=== PATIENT | male | born 1990 | race Caucasian/White ===

== ENCOUNTER 2016-09-28 17:50 | Emergency (ER) | payer OTHER, BC ==
[2016-09-28 18:08] VITALS: BP 126/87
[2016-09-28] MEDS ORDERED: predniSONE TAB* 20 MG PO ONE (18:26)
--- NOTE | 2016-09-28 18:29 | ED ---
Lower Extremity - HPI Summary HPI Summary: 26M presents with left ankle pain today. He states that he has history of arthritis with pain in his ankles. He does not taken anything for his arthritis. He denies any numbness or tingling. He denies any injury. He states he was sitting at urgent care and felt an extreme pain in his ankle. He was working outside today. He took ibuprofen and tyenlol prior to coming. He states that he normally clicks his ankle a couple times and it is better but he was unable to do so today. He denies his ankle giving out. He had a previous reconstructive surgery of the ankle done many years ago. He states that he has no medical conditions. - History of Current Complaint Chief Complaint: EDExtremityLower Stated Complaint: LEFT ANKLE PAIN Time Seen by Provider: 09/28/16 18:12 Pain Intensity: 8 - Allergies/Home Medications Allergies/Adverse Reactions: Allergies Allergy/AdvReac Type Severity Reaction Status Date / Time Acetaminophen [From Percocet] Allergy Intermediate Rash Verified 09/28/16 18:15 Oxycodone [From Percocet] Allergy Intermediate Rash Verified 09/28/16 18:15 PMH/Surg Hx/FS Hx/Imm Hx Endocrine/Hematology History: Reports: Hx Diabetes - TYPE 1 Cardiovascular History: Denies: Hx Hypertension Respiratory History: Reports: Other Respiratory Problems/Disorders - SEASONAL ALLERGIES - Surgical History Surgery Procedure, Year, and Place: R shoulder surg, L foot surg Infectious Disease History: No Infectious Disease History: Denies: Traveled Outside the [place] in Last 30 Days - Family History Known Family History: Negative: Hypertension - Social History Alcohol Use: Occasionally Substance Use Type: Reports: None Smoking Status (MU): Former Smoker Review of Systems Negative: Fever Negative: Chest Pain Negative: Shortness Of Breath Positive: Myalgia - left ankle pain All Other Systems Reviewed And Are Negative: Yes Physical Exam Triage Information Reviewed: Yes Vital Signs On Initial Exam: Initial Vitals Temp Pulse Resp BP Pulse Ox 98.3 F 101 16 126/87 98 09/28/16 18:04 09/28/16 18:04 09/28/16 18:04 09/28/16 18:04 09/28/16 18:04 Vital Signs Reviewed: Yes Appearance: Positive: Well-Appearing Skin: Positive: Warm, Dry Head/Face: Positive: Normal Head/Face Inspection Eyes: Positive: Normal, Conjunctiva Clear Respiratory/Lung Sounds: Positive: Clear to Auscultation, Breath Sounds Present Cardiovascular: Positive: Normal, RRR Musculoskeletal: Positive: Strength/ROM Intact - left ankle with pain, Other - good pulses, capillary refill<2 secs, tender across entire ankle. Negative: Edema Left Diagnostics - Vital Signs Vital Signs Temp Pulse Resp BP Pulse Ox 09/28/16 18:12 98.3 F 101 16 126/87 98 09/28/16 18:04 98.3 F 101 16 126/87 98 - Laboratory Lab Statement: Any lab studies that have been ordered have been reviewed, and results considered in the medical decision making process. Lower Extremity Course/Dx - Course Course Of Treatment: 26M presents with left ankle pain today. He states that he has history of arthritis with pain in his ankles. He does not taken anything for his arthritis. He denies any numbness or tingling. He denies any injury. He states he was sitting at urgent care and felt an extreme pain in his ankle. He was working outside today. He took ibuprofen and tyenlol prior to coming. He states that he normally clicks his ankle a couple times and it is better but he was unable to do so today. He denies his ankle giving out. He had a previous reconstructive surgery of the ankle done many years ago. full ROM with pain of ankle. neurovascular intact. offered xray but patient declined. will add steriod as potential arthritis flare up? patient understands and agrees with plan - Diagnoses Differential Diagnosis/HQI/PQRI: Positive: Fracture (Closed), Sprain, Strain Provider Diagnoses: Left ankle pain Discharge - Discharge Plan Condition: Good Disposition: HOME Prescriptions: predniSONE TAB* [Deltasone TAB*] 20 mg PO DAILY #3 tab Patient Education Materials: Arthralgia (ED) Referrals: Jr Murillo MD [Primary Care Provider] - Additional Instructions: Take Tylenol or ibuprofen every 6 hours as needed for pain Take steroid once a day starting tomorrow for 3 more days Apply ice, rest, elevate Follow up with primary care physician within 5 days Return to ED if develop any new or worsening symptoms
== END 2016-09-28 18:39 | disposition home or self-care (01) ==
LOC: ED 17:50
DX: M25.572 Pain in left ankle and joints of left foot (principal); E10.8 Type 1 diabetes mellitus with unspecified complications; Z88.6 Allergy status to analgesic agent; Z87.891 Personal history of nicotine dependence
CPT/HCPCS: 99282; J7512

== ENCOUNTER 2017-01-03 15:11 | Emergency (ER) | payer OTHER, BC ==
[2017-01-03] MEDS ORDERED: Dicyclomine CAP* 10 MG PO ONE (17:41)
[2017-01-03] MEDS ORDERED: NS 0.9% 1000 ML* 2,000 ML IV ONE (17:41)
[2017-01-03] MEDS ORDERED: Ondansetron INJ* 2 MG/ML VIAL IV ONE (17:41)
[2017-01-03 18:00] LABS: Hematocrit 44 % (42-52); Hemoglobin 14.9 g/dl (14.0-18.0); Mean Corpuscular HGB Conc 34 g/dl (31-36); Mean Corpuscular Hemoglobin 28 pg (27-31); Mean Corpuscular Volume 83 fL (80-94); Mean Platelet Volume 9 um3 (7.4-10.4); Red Blood Count 5.32 10^6/ul (4.0-5.4); Red Cell Distribution Width 13 % (10.5-15); White Blood Count 4.3 10^3/ul (3.5-10.8)
--- NOTE | 2017-01-03 18:15 | RAD ---
INDICATION: Nausea and vomiting COMPARISON: None TECHNIQUE: Erect and supine views of the abdomen are submitted. FINDINGS: Bones: There are no acute bony findings. Soft tissues: The soft tissues appear normal. The psoas margins are sharp. Bowel gas pattern: There is a small amount of gas within the large bowel. There are multiple fluid-filled loops small bowel with scattered air-fluid levels. The findings suggest an early or small bowel obstruction Calcifications: There are no abnormal calcifications. Other: None IMPRESSION: SUSPECT EARLY OR PARTIAL SMALL BOWEL OBSTRUCTION.
[2017-01-03 18:16] LABS: Albumin 3.9 g/dL (3.2-5.2); BUN/Creatinine Ratio 18.8 (8-20); C Reactive Protein 44.95 mg/L (< 5.00); Calcium 9.3 mg/dL (8.6-10.3); EGFR Non-African American 115.1 (>60); Globulin 2.8 g/dL (2-4); Magnesium 1.4 mg/dL (1.9-2.7); Potassium 3.8 mmol/L (3.5-5.0); Total Bilirubin 0.4 mg/dL (0.2-1.0); Total Protein 6.7 g/dL (6.4-8.9)
[2017-01-03] MEDS ORDERED: Iodixanol* (CONTRAST) 320 MG/ML 100 ML SDV IV ONE (19:09)
--- NOTE | 2017-01-03 21:03 | RAD ---
INDICATION: Abdominal pain. Partial small bowel obstruction COMPARISON: Abdomen January 03, 2017 TECHNIQUE: Axial source images were obtained from the hemidiaphragms to the symphysis pubis following administration of oral and intravenous contrast. 100 mL Visipaque 320 was utilized. Coronal and sagittal reconstructed images were acquired. Lung bases: The lung bases are clear. Liver: The liver is normal in size. There are no masses. There is no ductal dilatation. Gallbladder: The gallbladder is contracted. Spleen: The spleen is normal in size. There are no masses. Pancreas: There is no focal pancreatic mass or ductal dilatation. Adrenal glands: There is no evidence of adrenal mass. Kidneys: The kidneys are normal in size and position. There are prompt nephrograms and there is prompt excretion bilaterally. There are no renal parenchymal masses. There is no evidence of nephrolithiasis. Adenopathy: There is no evidence of adenopathy by size criteria. Fluid collections: There are no free or localized fluid collections. Vessels:There are no significant atherosclerotic changes involving the aorta. There is no focal aneurysm. The iliac vessels are normal in caliber. The IVC appears normal. GI tract: There are no acute CT bowel findings. The CT does not confirm a partial small bowel obstruction. The stomach and small bowel appear normal. The lower GI tract is normal. The cecum, ileocecal valve, and terminal ileum appear normal. The appendix is visualized and appear normal. Pelvic organs: The prostate and seminal vesicles appear normal Bladder: There are no bladder masses. Abdominal and pelvic soft tissues: The extraperitoneal abdominal and pelvic soft tissues appear normal.. Osseous structures: There are no acute osseous findings. Other: None IMPRESSION: NO SPECIFIC CT ABNORMALITIES. NO MASS OR INFLAMMATORY CHANGES. THE CT DOES NOT CONFIRM A PARTIAL SMALL BOWEL OBSTRUCTION.
[2017-01-03] MEDS ORDERED: Ondansetron ODT TAB* 4 MG PO ONE (21:36)
[2017-01-03 23:15] VITALS: BP 133/81
--- NOTE | 2017-01-04 18:26 | ED ---
Bipin Zaldivar Thomas, scribed for Rajat Kapoor MD on 01/03/17 at 1710 . Abdominal Pain/Male - HPI Summary HPI Summary: The pt is a 26 y/o M presenting to the ED c/o diarrhea that began three days ago as well as lower abd pain that began yesterday. The abdominal pain is described as squeezing. The pain is constant. The pt rates the pain 8/10. The pain is aggravated by nothing and is and alleviated by nothing. The patient has treated the diarrhea with Pepto-Bismol. Pt additionally c/o headache, nausea, vomiting, dry heaves, and dehydration. PMHx includes Type 1 DM with an A1c measured three days ago at 8.4. - History of Current Complaint Chief Complaint: EDGeneral Stated Complaint: N/D, DRY HEAVING, ACHES/PAINS, LOWER ABD PAIN Hx Obtained From: Patient Onset/Duration: Lasting Days - abd pain onset yesterday, Still Present Timing: Constant Severity Currently: Severe Pain Intensity: 8 Pain Scale Used: 0-10 Numeric Location: Other - Lower abd Character: Other: - Squeezing Aggravating Factor(s): Nothing Alleviating Factor(s): Nothing Associated Signs And Symptoms: Positive: Nausea, Vomiting, Diarrhea, Other - Headache, dry heaves, dehydration - Allergies/Home Medications Allergies/Adverse Reactions: Allergies Allergy/AdvReac Type Severity Reaction Status Date / Time Acetaminophen [From Percocet] Allergy Intermediate Rash Verified 09/28/16 18:15 Oxycodone [From Percocet] Allergy Intermediate Rash Verified 09/28/16 18:15 PMH/Surg Hx/FS Hx/Imm Hx Previously Healthy: No Endocrine/Hematology History: Reports: Hx Diabetes - TYPE 1 Cardiovascular History: Denies: Hx Hypertension Respiratory History: Reports: Other Respiratory Problems/Disorders - SEASONAL ALLERGIES - Surgical History Surgery Procedure, Year, and Place: R shoulder surg, L foot surg Infectious Disease History: No Infectious Disease History: Denies: Traveled Outside the [place] in Last 30 Days - Family History Known Family History: Negative: Hypertension - Social History Alcohol Use: Occasionally Substance Use Type: Reports: None Smoking Status (MU): Former Smoker Review of Systems Positive: Other - Dehydration Positive: Abdominal Pain, Vomiting, Diarrhea, Nausea, Other - Dry heaves Positive: Headache All Other Systems Reviewed And Are Negative: Yes Physical Exam - Summary Physical Exam Summary: VITAL SIGNS: Reviewed. GENERAL: Patient is a well-developed and nourished male who is lying comfortable in the stretcher. He appears dehydrated. Patient is not in any acute respiratory distress. HEAD AND FACE: Normocephalic and atraumatic. EYES: PERRLA, EOMI x 2, No injected conjunctiva. EARS: Hearing grossly intact. Ear canals and tympanic membranes are WNL. MOUTH: Oropharynx within normal limits. NECK: Supple, trachea is midline, no adenopathy, no JVD. CHEST: Symmetric, no tenderness at palpation LUNGS: Clear to auscultation bilaterally. No wheezing or crackles. CVS: RRR, S1 and S2 present, no murmurs or gallops appreciated. ABDOMEN: He has LLQ tenderness. Soft. No signs of distention. Positive bowel sounds. No rebound no guarding, and no masses palpated. No abdominal bruit or pulsations. EXTREMITIES: FROM in all major joints, no edema, no cyanosis or clubbing. NEURO: Alert and oriented x 3. No acute neurological deficits. Speech is normal. SKIN: Dry and warm Triage Information Reviewed: Yes Vital Signs On Initial Exam: Initial Vitals Temp Pulse Resp BP Pulse Ox 98.8 F 104 20 137/86 100 01/03/17 15:18 01/03/17 15:18 01/03/17 15:18 01/03/17 15:18 01/03/17 15:18 Vital Signs Reviewed: Yes - [place] Coma Scale Coma Scale Total: 15 Diagnostics - Vital Signs Vital Signs Temp Pulse Resp BP Pulse Ox 01/03/17 15:18 98.8 F 104 20 137/86 100 - Laboratory Lab Results: Lab Results 01/03/17 01/03/17 Range/Units 17:50 17:50 WBC 4.3 (3.5-10.8) 10^3/ul RBC 5.32 (4.0-5.4) 10^6/ul Hgb 14.9 (14.0-18.0) g/dl Hct 44 (42-52) % MCV 83 (80-94) fL MCH 28 (27-31) pg MCHC 34 (31-36) g/dl RDW 13 (10.5-15) % Plt Count 164 (150-450) 10^3/ul MPV 9 (7.4-10.4) um3 Neut % (Auto) 73.1 (38-83) % Lymph % (Auto) 16.6 L (25-47) % [place] % (Auto) 9.5 H (1-9) % Eos % (Auto) 0.5 (0-6) % Baso % (Auto) 0.3 (0-2) % Absolute Neuts (auto) 3.1 (1.5-7.7) 10^3/ul Absolute Lymphs (auto) 0.7 L (1.0-4.8) 10^3/ul Absolute Monos (auto) 0.4 (0-0.8) 10^3/ul Absolute Eos (auto) 0 (0-0.6) 10^3/ul Absolute Basos (auto) 0 (0-0.2) 10^3/ul Absolute Nucleated RBC 0 10^3/ul Nucleated RBC % 0 Sodium 135 (133-145) mmol/L Potassium 3.8 (3.5-5.0) mmol/L Chloride 102 (101-111) mmol/L Carbon Dioxide 28 (22-32) mmol/L Anion Gap 5 (2-11) mmol/L BUN 15 (6-24) mg/dL Creatinine 0.80 (0.67-1.17) mg/dL Est GFR ( Amer) 148.0 (>60) Est GFR (Non-Af Amer) 115.1 (>60) BUN/Creatinine Ratio 18.8 (8-20) Glucose 94 (70-100) mg/dL Calcium 9.3 (8.6-10.3) mg/dL Magnesium 1.4 L (1.9-2.7) mg/dL Total Bilirubin 0.40 (0.2-1.0) mg/dL AST 21 (13-39) U/L ALT 21 (7-52) U/L Alkaline Phosphatase 86 (34-104) U/L C-Reactive Protein 44.95 H (< 5.00) mg/L Total Protein 6.7 (6.4-8.9) g/dL Albumin 3.9 (3.2-5.2) g/dL Globulin 2.8 (2-4) g/dL Albumin/Globulin Ratio 1.4 (1-3) Lipase 31 (11.0-82.0) U/L Result Diagrams: 01/03/17 17:50 01/03/17 17:50 Lab Statement: Any lab studies that have been ordered have been reviewed, and results considered in the medical decision making process. - Radiology XR Abdomen Xray Interpretation: Positive (See Comments) - SUSPECT EARLY OR PARTIAL SMALL BOWEL OBSTRUCTION. ED physician has reviewed this report and agrees. Radiology Interpretation Completed By: Radiologist - CT CT Abd/Pel CT Interpretation Completed By: Radiologist - Results pending-see [facility] Abdominal Pain Fem Course/Dx - Course Assessment/Plan: The pt is a 26 y/o M presenting to the ED c/o diarrhea that began three days ago as well as lower abd pain that began yesterday. The abdominal pain is described as squeezing. The pain is constant. The pt rates the pain 8/10. The pain is aggravated by nothing and is and alleviated by nothing. The patient has treated the diarrhea with Pepto-Bismol. Pt additionally c/o headache, nausea, vomiting, dry heaves, and dehydration. PMHx includes Type 1 DM with an A1c measured three days ago at 8.4. Test results are without any significant abnormalities except magnesium of 1.4, CRP of 44.9. XR Abdo shows SUSPECT EARLY OR PARTIAL SMALL BOWEL OBSTRUCTION. At this point, I ordered an abdominal pelvic CT to rule out small bowel obstruction. The patient is drinking the contrast for CT. The patient will be signed out to Dr Ojeda for follow up on the CTs results and further disposition and treatment. - Diagnoses Provider Diagnoses: Abdominal pain, Nausea and vomiting Discharge - Discharge Plan Condition: Stable Disposition: HOME Discharge Disposition Comment: Sign out to next ED attending pending CT Abd/Pel , awaiting dispo. Prescriptions: Ondansetron ODT TAB* [Zofran 4 MG Odt TAB*] 4 mg PO Q6H PRN #10 tab.odt PRN Reason: Nausea Patient Education Materials: Dehydration (ED), Acute Nausea and Vomiting (ED), Abdominal Pain (ED) Referrals: Jr Murillo MD [Primary Care Provider] - Additional Instructions: FOLLOW UP WITH YOUR DOCTOR. RETURN TO THE EMERGENCY DEPARTMENT FOR ANY WORSENING OF YOUR CONDITION; PAIN, FEVER, DEHYDRATION, YOU FEEL ILL OR QUESTIONS OR CONCERNS. The documentation as recorded by the Bipin bell Thomas accurately reflects the service I personally performed and the decisions made by me, Rajat Kapoor MD.
== END 2017-01-03 23:13 | disposition home or self-care (01) ==
LOC: ED 15:11
DX: R11.2 Nausea with vomiting, unspecified (principal); R10.9 Unspecified abdominal pain; R19.7 Diarrhea, unspecified; R51 Headache; E86.0 Dehydration; Z87.891 Personal history of nicotine dependence
CPT/HCPCS: 36415; 74020; 74177; 80053; 83690; 83735; 85025; 86140; 99285; A9270-GY; J2405; Q9967

== ENCOUNTER 2018-02-05 07:10 | Emergency (ER) | payer OTHER, BC ==
[2018-02-05 07:40] VITALS: BP 141/97
--- NOTE | 2018-02-05 08:03 | UC ---
Upper Extremity HPI - HPI Summary HPI Summary: 27 year old male presents with a laceration to the left, distal middle finger. Patient states he shut his finger in a wooden door last night around 10pm. He washed the wound with water at work and dressed it with gauze and tape. He states while he was working the pain became worse and he came into urgent care to have it looked at and to have glue applied. Patient has a history of type 1 diabetes and he reports his sugar readings have been good. Patient states he is up to date on his tetanus vaccination. Patient denies numbness, tingling, and decreased ROM of the affected digit. - History of Current Complaint Chief Complaint: UCLaceration Stated Complaint: FINGER LAC Time Seen by Provider: 02/05/18 07:20 Hx Obtained From: Patient Onset/Duration: Sudden Onset, Lasting Hours Severity Initially: Moderate Severity Currently: Moderate Pain Intensity: 5 Pain Scale Used: 0-10 Numeric Location Of Pain: Is Discrete @ - left, distal middle finger. Character: Sharp Aggravating Factor(s): Movement Alleviating Factor(s): Nothing Associated Signs And Symptoms: Positive: Negative - Risk Factors Non-Orthopedic Risk Factor: Negative Septic Arthritis Risk Factor: Negative Compartment Syndrome Risk Factors: Pain - Allergies/Home Medications Allergies/Adverse Reactions: Allergies Allergy/AdvReac Type Severity Reaction Status Date / Time acetaminophen [From Percocet] Allergy Rash Verified 02/05/18 07:32 oxycodone [From Percocet] Allergy Rash Verified 02/05/18 07:32 Home Medications: Home Medications Cholecalciferol TAB* [Vitamin D TAB*] 5,000 unit PO DAILY 02/05/18 [History Confirmed 02/05/18] Lisdexamfetamine Dimesylate [Vyvanse] 10 mg PO DAILY 02/05/18 [History Confirmed 02/05/18] Lisinopril TAB* [Prinivil TAB 10 MG*] 10 mg PO DAILY 02/05/18 [History Confirmed 02/05/18] PMH/Surg Hx/FS Hx/Imm Hx Previously Healthy: No Endocrine History: Diabetes - Type 1 - Surgical History Surgical History: Yes Surgery Procedure, Year, and Place: R shoulder, L foot surg - Family History Known Family History: Negative: Hypertension, Diabetes - Social History Occupation: Employed Full-time Alcohol Use: Occasionally Substance Use Type: None Smoking Status (MU): Former Smoker Review of Systems All Other Systems Reviewed And Are Negative: Yes Constitutional: Positive: Negative Skin: Positive: Other - left middle finger pain and laceration Respiratory: Positive: Negative Cardiovascular: Positive: Negative Motor: Negative: Decreased ROM, Weakness Neurovascular: Negative: Decreased Sensation Neurological: Positive: Negative Is Patient Immunocompromised?: Yes - Type 1 Diabetes Physical Exam Triage Information Reviewed: Yes Appearance: Well-Appearing, No Pain Distress, Well-Nourished Vital Signs: Initial Vital Signs Temp 98.5 F 02/05/18 07:35 Pulse 99 02/05/18 07:35 Resp 18 02/05/18 07:35 BP 141/97 02/05/18 07:35 Pulse Ox 98 02/05/18 07:35 Vital Signs Reviewed: Yes ENT: Positive: Hearing grossly normal Respiratory: Positive: Lungs clear, Normal breath sounds Cardiovascular: Positive: RRR, Pulses Normal, Brisk Capillary Refill Musculoskeletal: Positive: ROM Intact Neurological: Positive: Other: - Sensation to light touch intact Psychological Exam: Other - 1cm stellate non-bleeding superficial lac to volar tip of L middle finger Procedures - Laceration/Wound Repair L middle finger Location: upper extremity - left distal middle finger Description: Irregular Length, Depth and Shape: 1cm, superficial, irregular Laceration/Wound Explored: clean - washed with soap and water under the sink for 5 minutes Closure: Skin Adhesive Layer Closure?: No Sterile Dressing Applied?: Yes - Band-Aid Diagnostics - Radiology L Middle finger Radiology Interpretation Completed By: Radiologist - No fracture Upper Extremity Course/Dx - Course Course Of Treatment: Xray neg. Cleaned extensively with soap and water. Dermabond. Short course of Keflex. - Differential Dx/Diagnosis Provider Diagnosis: Laceration of left middle finger, History of type 1 diabetes mellitus Discharge - Sign-Out/Discharge Documenting (check all that apply): Patient Departure All imaging exams completed and their final reports reviewed: Yes - Discharge Plan Condition: Improved Disposition: HOME Prescriptions: Cephalexin CAP* [Keflex CAP*] 500 mg PO TID #12 cap Patient Education Materials: Laceration (ED), Skin Adhesive Care (ED) Referrals: Jr Murillo MD [Primary Care Provider] - Additional Instructions: Return to your doctor or urgent care for concern for infection, fever, worse or other concerns. Keep clean and dry. - Billing Disposition and Condition Condition: IMPROVED Disposition: Home - Attestation Statements Document Initiated by Scribe: No
== END 2018-02-05 08:16 | disposition home or self-care (01) ==
LOC: UCEAST 07:10
DX: S61.213A Laceration without foreign body of left middle finger without damage to nail, initial encounter (principal); W23.0XXA Caught, crushed, jammed, or pinched between moving objects, initial encounter; Y92.9 Unspecified place or not applicable; Y99.0 Civilian activity done for income or pay; E10.9 Type 1 diabetes mellitus without complications; Z88.6 Allergy status to analgesic agent; Z88.5 Allergy status to narcotic agent; Z87.891 Personal history of nicotine dependence
CPT/HCPCS: 12001; 73140; 99212; G0463

== ENCOUNTER 2018-10-06 07:23 | Emergency (ER) | payer OTHER, BC ==
[2018-10-06 07:38] VITALS: BP 145/82
[2018-10-06] MEDS ORDERED: DOXYcycline CAP(*) 100 MG PO ONE (07:54)
--- NOTE | 2018-10-06 08:46 | UC ---
Skin Complaint HPI - HPI Summary HPI Summary: Pt presents to ED for eval of wounds on bilateral knees and left elbow. 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 pt state he also sustained many bug bite on legs L>R PT states he was delayed in washing wounds - but has washed several times. pt states increased erythema and itching. pt states has used topical OTC "itch"ointment with some improvement. PT states scant drainage from several of the wounds. no fever, chills. tdap utd pt has IDDM Medications reviewed - History of Current Complaint Chief Complaint: UCSkin Time Seen by Provider: 10/06/18 07:42 Stated Complaint: INFECTION IN LEGS Hx Obtained From: Patient Onset/Duration: Gradual Onset Skin Exposure Onset/Duration: Days Ago Onset Severity: Mild Pain Intensity: 6 Pain Scale Used: 0-10 Numeric - Allergy/Home Medications Allergies/Adverse Reactions: Allergies Allergy/AdvReac Type Severity Reaction Status Date / Time oxycodone [From Percocet] Allergy Rash Verified 10/06/18 07:38 Home Medications: Home Medications Cetirizine* [ZyrTEC 10 MG TAB*] 10 mg PO DAILY 10/06/18 [History Confirmed 10/06] Insulin Lispro [Humalog] 10/06/18 [History] PMH/Surg Hx/FS Hx/Imm Hx Previously Healthy: Yes - Surgical History Surgical History: Yes Surgery Procedure, Year, and Place: R shoulder, L foot surg - Family History Known Family History: Positive: Non-Contributory Negative: Hypertension, Diabetes - Social History Occupation: Employed Full-time Lives: With Family Alcohol Use: Occasionally Substance Use Type: None Smoking Status (MU): Never Smoked Tobacco - Immunization History Most Recent Tetanus Shot: up to date Review of Systems All Other Systems Reviewed And Are Negative: Yes Constitutional: Negative: Fever Skin: Positive: Other - wounds b/l knees Physical Exam - Summary Physical Exam Summary: Vital Signs Reviewed: Yes A+Ox3, no distress Eyes: Conjunctiva Clear ENT: Hearing grossly normal neck: supple Respiratory: Positive: No respiratory distress, No accessory muscle use CTA throughout no w/R Cardiovascular: skin color reflect adequate perfusion RRR nl s1, s2 no m/r Musculoskeletal Exam: Full AROM LE b/l, no pain with palpation knee, no effusion , tenderness only at site of wound Neurological: Positive: Alert, ambulatory without difficulty Psychological: Positive: Normal Response To Family Skin: Positive: no rash, no ecchymsis, pt with abraisons b/l knees left 2 wounds, approx 2cm and 1.5 cm. lateral 2cm wound with surrouding erythema Pt with punctate lesioins (approx 10) anterior prox left tib/fib - purulent, few with small pustules and drainage - culture taken by me Triage Information Reviewed: Yes Vital Signs: Initial Vital Signs Temp 98.8 F 10/06/18 07:32 Pulse 100 10/06/18 07:32 Resp 16 10/06/18 07:32 BP 145/82 10/06/18 07:32 Pulse Ox 100 10/06/18 07:32 Course/Dx - Course Course Of Treatment: Pt presents for evaluation of wounds to bilateral knee and left anterior starks. PT states wounds are from being pushed into wall in sheep pen. pt also with wounds related to bug bite he scratched. Pt with a h/o IDDM - uses a pump - sugars running 130-200. Pt states little bit of discomfort in area of wounds. 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 - will have wound rechecked BP mildly increased - recommend f/u with PCP - Diagnoses Provider Diagnosis: Infected wound Discharge - Sign-Out/Discharge Documenting (check all that apply): Patient Departure All imaging exams completed and their final reports reviewed: No Studies - Discharge Plan Condition: Stable Disposition: HOME Prescriptions: DOXYcycline CAP(*) [DOXYcycline 100MG CAP(*)] 100 mg PO BID #20 cap Patient Education Materials: Wound Infection (ED) Referrals: Jr Murillo MD [Primary Care Provider] - Additional Instructions: - take antibiotics 2 times a day as prescribed - clean your wounds with warm, soapy water - pat dry - cover with a thin layer of antibiotic ointment - monitor your wounds for increased infection - reddness, red streaking, odor, increased drainage - have your doctor recheck your wounds at your appointment on Friday. If you have questions or concerns - contact your doctor or return with questions or concerns - Billing Disposition and Condition Condition: STABLE Disposition: Home
== END 2018-10-06 08:05 | disposition home or self-care (01) ==
LOC: UCEAST 07:23
DX: S80.912A Unspecified superficial injury of left knee, initial encounter (principal); S80.911A Unspecified superficial injury of right knee, initial encounter; S50.902A Unspecified superficial injury of left elbow, initial encounter; L08.9 Local infection of the skin and subcutaneous tissue, unspecified; W22.8XXA Striking against or struck by other objects, initial encounter; Y93.K9 Activity, other involving animal care; Y92.79 Other farm location as the place of occurrence of the external cause; Y99.0 Civilian activity done for income or pay; Z88.5 Allergy status to narcotic agent
CPT/HCPCS: 87070; 87205; 87640; 87641; 99212; A9270-GY; G0463